=== PATIENT | male | born 1945 | race Caucasian/White ===

== ENCOUNTER → 2017-03-08 | Outpatient (CLI) | payer BC ==
[2017-03-08 14:29] LABS: MEAN CORPUSCULAR HEMOGLOBIN 35.1 pg (27.0-33.0); MEAN CORPUSCULAR HGB CONC 33.5 g/dl (32.0-36.5); MEAN CORPUSCULAR VOLUME 104.5 fl (80.0-96.0); RED CELL DISTRIBUTION WIDTH 12.7 % (11.5-14.5); WHITE BLOOD COUNT 8.3 K/mm3 (4.0-10.0)
[2017-03-08 14:43] LABS: ANION GAP 8 MEQ/L (8-16); BLOOD UREA NITROGEN 11 MG/DL (7-18); CALCIUM LEVEL 9.5 MG/DL (8.8-10.2); CARBON DIOXIDE LEVEL 27 MEQ/L (21-32); CHLORIDE LEVEL 103 MEQ/L (98-107); CREATININE FOR GFR 1.04 MG/DL (0.70-1.30); GLOMERULAR FILTRATION RATE > 60.0 (>49); GLUCOSE, FASTING 99 MG/DL (80-110); SODIUM LEVEL 138 MEQ/L (136-145)
[2017-03-08 14:51] LABS: POTASSIUM SERUM 5.9 MEQ/L (3.5-5.1)
== END ==
LOC: M SMT 10:22
PROVIDERS: ATTEND Surgery Vascular Surgery
DX: M79.605 Pain in left leg (principal)

== ENCOUNTER → 2017-03-08 | Outpatient (CLI) | payer BC ==
--- NOTE | 2017-03-08 10:51 | REP ---
DUPLEX DOPPLER EVALUATION LEFT LOWER EXTREMITY ARTERIAL SYSTEM: Real-time ultrasound evaluation and duplex Doppler interrogation of left lower extremity arterial system is performed. Brachial: 170 right and left. Dorsalis pedis: 90 Posterior tibial artery: No flow. STEVO: 0.5 PEAK SYSTOLIC VELOCITY PHASICITY Left common femoral artery 102.2 cm/s Triphasic Profunda 73.5 cm/s Triphasic Superficial femoral artery proximal 72.2 cm/s Triphasic Superficial femoral artery mid 92.0 cm/s Triphasic Superficial femoral artery distal 68.6 cm/s Triphasic Popliteal 42.2 cm/s Triphasic Anterior tibial artery proximal 77.3 cm/s Triphasic Tibioperoneal trunk 51.3 cm/s Biphasic Posterior tibial artery proximal No flow Posterior tibial artery distal No flow Anterior tibial artery distal 7.3 cm/s Biphasic Dorsalis pedis 6.6 cm/s Monophasic Findings are compatible with significant atherosclerotic narrowing in the calf. Signed by Evan Martinez MD 03/08/2017 01:12 P
== END ==
LOC: M RAD 07:25
PROVIDERS: ATTEND Surgery Vascular Surgery
DX: M79.605 Pain in left leg (principal)

== ENCOUNTER → 2017-03-19 | Outpatient (CLI) | payer BC ==
[~2017-03-19] MED LIST: HEPARIN 1,000 UNITS/ML 10ML VIAL (FOR RADIOLOGY& DIALYSIS ONLY) As Ordered ONE; ISOVUE-300 61% 50ML VIAL (Q9967) As Ordered ONE; MIDAZOLAM INJ 2 MG/2 ML VIAL (J2250) As Ordered ONE; fentaNYL 100 MCG/2 ML INJECTION (J3010) As Ordered ONE
--- NOTE | 2017-03-23 21:50 | ROOPDOC ---
[facility] Report Of Operation Report of Operation DATE OF PROCEDURE: 03/19/17 PREOPERATIVE DIAGNOSES: Left lower extremity claudication. Tibial peroneal atherosclerotic arterial occlusive disease. POSTOPERATIVE DIAGNOSES: Left lower extremity claudication. Tibial peroneal atherosclerotic arterial occlusive disease. PROCEDURE: Aortogram. Iliofemoral angiogram. Selective left common femoral artery catheter placed with left lower extremity angiogram. Mynx closure of the right common femoral arteriotomy. SURGEON: Dr. Justyn Brooke MD EQUIPMENT SPECIALIST: None INDICATION: Patient is a 71-year-old white male with bilateral lower extremity pain and claudication with the left being much more significant than the right. The patient underwent ultrasound of his left lower extremity which showed an STEVO of 0.5 and severe tibial peroneal arterial occlusive disease with occlusion of the posterior tibial artery. Patient was evaluated and options discussed with the patient and the recommendation was made to undergo a left lower extremity angiogram with possible angioplasty and/or stenting.. Risks benefits and alternative treatment options were discussed with the patient. Benefits include but are not limited to resolution of symptoms. Alternative treatment options included but are not limited to no intervention. Risks included but are not limited to infection, bleeding, renal failure requiring hemodialysis, retroperitoneal hematoma, possible need for open surgical intervention, cerebrovascular accident, myocardial infarction, pulmonary embolus, DVT, contrast dye reaction, loss of limb, loss of life and poor outcome. Patient's questions were answered, patient understands and accepts the risks associated with the procedure and the patient agrees to proceed with the procedure. ANESTHESIA: Local with 10 cc of 2% lidocaine. SEDATION TIME: No sedation administered. ESTIMATED BLOOD LOSS: Approximately 15 mL. IV FLUIDS: 150 HEPARIN: None PROTAMINE: None FLUORO TIME: 1.4 min. CONTRAST: 14 cc COMPLICATIONS: None. DRAINS: None SPECIMENS: None IMPLANTS: Right common femoral Mynx closure device PROCEDURE: The patient was taken to the angiography suite, placed supine on the angiography room table and prepped and draped in a standard surgical fashion. A time out was performed by myself and the members of the team in the procedure room confirming the correct procedure, patient and laterality. The right common femoral artery was then cannulated with a micropuncture needle after anesthetizing the overlying skin with 2% lidocaine. The micropuncture wire was advanced through the micropuncture needle which was upsized to a micropuncture sheath. The Gandhi wire was then advanced through the micropuncture sheath which was upsized to a 5 Japanese sheath. The Omni flush catheter was advanced over the Gandhi wire placed in the aorta and in aortogram was performed. The catheter was pulled down to the bifurcation of the iliac arteries in an iliofemoral angiogram was performed. The catheter was then directed over the bifurcation of the iliac arteries using the Gandhi wire and placed in the left common femoral artery selectively and a left lower extremity angiogram was performed. The arteriotomy in the right common femoral artery was closed using a Mynx closure device with an additional 10 min. of adjunct of pressure applied for hemostasis, which was noted. Dressings were then applied. There were no complications. Dr. Brooke was present for and directed the entire case. The patient was transferred to the holding area and subsequently discharged in stable condition. RADIOLOGIC SUPERVISION AND INTERPRETATION: Initial aortogram showed a suprarenal aortic patent but showed calcific plaquing along the lanza of the aorta. There were 2 renal arteries on the left and right both of which were patent. The superior mesenteric and celiac arteries were widely patent. There was an approximate 40% stenosis in the aorta between the upper and lower renal arteries. The infrarenal aorta was patent with good filling of lumbar vessels and there was calcific plaquing along the lanza of the aorta. The common iliac arteries external and internal iliac arteries were patent bilaterally. The right common femoral artery and proximal superficial femoral and profunda femoris arteries were widely patent and there was no visualization below the cannulation site. The left common femoral, superficial femoral and profunda femoris arteries were patent with some minor luminal irregularities along the superficial femoral artery. There were also some minor luminal irregularities at the origin of the profunda femoris artery on the left. The superficial femoral artery was patent and the popliteal artery and both the above and below knee popliteal artery were patent with donor only minor luminal irregularities. The below-knee runoff was via the peroneal artery which was patent into the ankle and supplied collaterals into the posterior tibial artery which was patent into the foot. The anterior tibial and posterior tibial arteries occluded in the mid calf and were severely diseased in the patent portions in the upper calf. A Mynx closure device was used to close the arteriotomy in the right common femoral artery. Jason Brooke MD Mar 23, 2017 21:50
== END | disposition home or self-care (01) ==
LOC: M IRPRO 08:49
PROVIDERS: ATTEND Surgery Vascular Surgery
DX: I70.212 Atherosclerosis of native arteries of extremities with intermittent claudication, left leg (principal)
CPT/HCPCS: 36246; 75625; 75716; 75774; C1760; C1769; C1887; C1894; G0269; J2250; J3010; Q9967

== ENCOUNTER → 2019-02-22 | Outpatient (REF) | payer BC | LOC: M SFHCADAM 14:25 | PROVIDERS: ATTEND Family Medicine | DX: R73.03 Prediabetes (principal); E78.2 Mixed hyperlipidemia; Z53.9 Procedure and treatment not carried out, unspecified reason ==

== ENCOUNTER → 2019-10-06 | Outpatient (REF) | payer BC ==
[2019-10-06 15:29] LABS: ALBUMIN 3.7 GM/DL (3.2-5.2); ALT/SGPT 25 U/L (12-78); BILIRUBIN,TOTAL 0.8 MG/DL (0.2-1.0); BLOOD UREA NITROGEN 10 MG/DL (7-18); CALCIUM LEVEL 8.3 MG/DL (8.8-10.2); CARBON DIOXIDE LEVEL 27 MEQ/L (21-32); CHLORIDE LEVEL 101 MEQ/L (98-107); CHOLESTEROL LEVEL 154 MG/DL (<200); CHOLESTEROL RISK RATIO 2.524 (<5); CREATININE FOR GFR 1.02 MG/DL (0.70-1.30); GLOMERULAR FILTRATION RATE > 60.0 (>42); GLUCOSE, FASTING 96 MG/DL (70-100); HDL CHOLESTEROL 61 MG/DL (>40); LDL CHOLESTEROL 52 MG/DL (<100); NON-HDL-C 93 MG/DL; POTASSIUM SERUM 4.7 MEQ/L (3.5-5.1); SODIUM LEVEL 134 MEQ/L (136-145); TRIGLYCERIDES LEVEL 207 MG/DL (<150)
[2019-10-06 15:33] LABS: HEMOGLOBIN A1c 5.6 %
== END ==
LOC: M SFHCADAM 11:32
PROVIDERS: ATTEND Family Medicine
DX: R73.03 Prediabetes (principal); E78.2 Mixed hyperlipidemia

== ENCOUNTER → 2021-01-06 | Outpatient (REF) | payer BC, MEDICARE ==
[2021-01-06 12:42] LABS: BASO % 0.5 % (0.0-1.0); EOS # 0.1 10^3/uL (0.0-0.5); EOS % 1.8 % (0.0-3.0); HEMATOCRIT 48.4 % (42.0-52.0); HEMOGLOBIN 15.6 g/dl (13.5-17.5); LYMPH # 1.1 10^3/uL (1.5-5.0); LYMPH % 13.5 % (24.0-44.0); MEAN CORPUSCULAR HEMOGLOBIN 32.2 pg (27.0-33.0); MEAN CORPUSCULAR HGB CONC 32.2 g/dl (32.0-36.5); MEAN CORPUSCULAR VOLUME 99.8 fl (80.0-96.0); MONO # 0.7 10^3/uL (0.0-0.8); MONO % 8.3 % (2.0-8.0); NEUTROPHILS % 75.5 % (36.0-66.0); PLATELET COUNT, AUTOMATED 237 10^3/uL (150-450); RED BLOOD COUNT 4.85 10^6/uL (4.30-6.10); WHITE BLOOD COUNT 7.9 10^3/uL (4.0-10.0)
[2021-01-06 13:12] LABS: ALBUMIN 3.7 GM/DL (3.2-5.2); ALT/SGPT 18 U/L (12-78); BILIRUBIN,TOTAL 0.7 MG/DL (0.2-1.0); BLOOD UREA NITROGEN 8 MG/DL (7-18); CALCIUM LEVEL 9.2 MG/DL (8.8-10.2); CARBON DIOXIDE LEVEL 29 MEQ/L (21-32); CHLORIDE LEVEL 104 MEQ/L (98-107); CHOLESTEROL LEVEL 136 MG/DL (<200); CHOLESTEROL RISK RATIO 2.193 (<5); CREATININE FOR GFR 1.07 MG/DL (0.70-1.30); GLOMERULAR FILTRATION RATE > 60.0 (>42); GLUCOSE, FASTING 124 MG/DL (70-100); HDL CHOLESTEROL 62 MG/DL (>40); LDL CHOLESTEROL 58 MG/DL (<100); NON-HDL-C 74 MG/DL; POTASSIUM SERUM 5.3 MEQ/L (3.5-5.1); SODIUM LEVEL 137 MEQ/L (136-145); TOTAL PROTEIN 6.7 GM/DL (6.4-8.2); TRIGLYCERIDES LEVEL 81 MG/DL (<150)
[2021-01-06 13:45] LABS: HEMOGLOBIN A1c 5.5 %
== END ==
LOC: M SFHCADAM 10:26
PROVIDERS: ATTEND Family Medicine
DX: E78.2 Mixed hyperlipidemia (principal); R73.03 Prediabetes; N64.4 Mastodynia; Z12.5 Encounter for screening for malignant neoplasm of prostate
CPT/HCPCS: 80053; 80061; 83036; 85025; G0103

== ENCOUNTER → 2021-01-08 | Outpatient (CLI) | payer MEDICARE ==
--- NOTE | 2021-01-08 14:09 | REP ---
INDICATION: N64.4 RT BREAST PAIN. The patient reports that the referring provider felt a lump. Patient complains of right breast pain. Retroareolar region. COMPARISON: None. TECHNIQUE: Targeted right breast sonography is performed in the area of patient's symptoms. Limited scanning for comparison purposes in the retroareolar region on the left. FINDINGS: Retroareolar scanning is performed in the right breast in the area of interest. There is a 1.0 x 0.7 x 0.9 cm area of hypoechoic tissue just beneath the nipple on the right side consistent with gynecomastia. No spiculation or acoustic shadowing is seen. No other finding. IMPRESSION: BI-RADS category 2 benign findings. Gynecomastia pattern retroareolar region on the right. Clinical follow-up is advised. If symptoms persist or progress, repeat imaging with mammography and sonography could be considered. <Electronically signed by Allen Harrison > 01/08/21 [id number]
== END ==
LOC: M WHC 12:44
PROVIDERS: ATTEND Family Medicine
DX: N62 Hypertrophy of breast (principal)

== ENCOUNTER 2021-12-18 02:11 | Inpatient (IN) | payer MEDICARE, BC ==
[~2021-12-18] VITALS: Ht 182.9 cm; Wt 70.0 kg
[~2021-12-18 02:11] MED LIST changes: +ALBU83IN INH; +AMLO1TAB24 PO; +CILO50TA PO; +CLOP75TA2 PO; -HEPARIN 1,000 UNITS/ML 10ML VIAL (FOR RADIOLOGY& DIALYSIS ONLY) As Ordered ONE; +IRBE150T7 PO; -ISOVUE-300 61% 50ML VIAL (Q9967) As Ordered ONE; +METO1TAB33 PO; -MIDAZOLAM INJ 2 MG/2 ML VIAL (J2250) As Ordered ONE; +PRAV20TA2 PO; +VITMTA PO; +XARE20TA PO; -fentaNYL 100 MCG/2 ML INJECTION (J3010) As Ordered ONE
[2021-12-18 02:39] LABS: BASO # 0.1 10^3/uL (0.0-0.2); BASO % 0.5 % (0.0-1.0); EOS # 1.2 10^3/uL (0.0-0.5); EOS % 9.9 % (0.0-3.0); HEMATOCRIT 50.6 % (42.0-52.0); HEMOGLOBIN 16.7 g/dl (13.5-17.5); LYMPH # 1.4 10^3/uL (1.5-5.0); LYMPH % 11.1 % (24.0-44.0); MEAN CORPUSCULAR HEMOGLOBIN 33.5 pg (27.0-33.0); MEAN CORPUSCULAR VOLUME 101.4 fl (80.0-96.0); MONO % 7.7 % (2.0-8.0); NEUTROPHILS # 8.8 10^3/uL (1.5-8.5); NEUTROPHILS % 70.6 % (36.0-66.0); PLATELET COUNT, AUTOMATED 257 10^3/uL (150-450); RED BLOOD COUNT 4.99 10^6/uL (4.30-6.10); WHITE BLOOD COUNT 12.5 10^3/uL (4.0-10.0)
[2021-12-18] MEDS: COMBIVENT RESPIMAT 100-20MCG INHALER 4GM INH SCH ×3 (03:07→03:56)
[2021-12-18 03:09] LABS: ABG BASE EXCESS -1.4 (-2.0-2.0); ABG HCO3 24.3 MEQ/L (22.0-26.0); ABG PARTIAL PRESSURE CO2 44.5 mmHg (35.0-45.0); ABG PARTIAL PRESSURE O2 102.2 mmHg (75.0-100.0); ABG STANDARD HCO3 23.3 MEQ/L (22.0-26.0); ABG TOTAL CO2 25.7 MEQ/L (23.0-31.0); ABG pH (ARTERIAL) 7.356 UNITS (7.350-7.450)
[2021-12-18 03:15] LABS: MB/CK RELATIVE INDEX 4.71 (< OR =4)
[2021-12-18 03:17] LABS: ALBUMIN 3.4 GM/DL (3.2-5.2); ALT/SGPT 22 U/L (12-78); BILIRUBIN,DIRECT 0.2 MG/DL (0.0-0.2); BILIRUBIN,TOTAL 0.9 MG/DL (0.2-1.0); BLOOD UREA NITROGEN 10 MG/DL (7-18); CALCIUM LEVEL 9.3 MG/DL (8.8-10.2); CARBON DIOXIDE LEVEL 24 MEQ/L (21-32); CHLORIDE LEVEL 108 MEQ/L (98-107); CREATININE FOR GFR 0.89 MG/DL (0.70-1.30); GLOMERULAR FILTRATION RATE > 60.0 (>42); GLUCOSE, FASTING 116 MG/DL (70-100); POTASSIUM SERUM 4.7 MEQ/L (3.5-5.1); SODIUM LEVEL 140 MEQ/L (136-145); TOTAL PROTEIN 6.8 GM/DL (6.4-8.2)
[2021-12-18 04:27] LABS: CK-MB VALUE MASS 4.4 NG/ML (<3.6); MB/CK RELATIVE INDEX 5.06 (< OR =4)
[2021-12-18 04:33] LABS: NT-PRO BNP 955 PG/ML (<125)
[2021-12-18] MEDS ORDERED: XARE20TA PO (06:14)
[2021-12-18] MEDS ORDERED: AMIO200T49 PO (06:14)
[2021-12-18] MEDS ORDERED: HOME MED LIST COMPLETE! XX SCH (06:15)
[2021-12-18] MEDS: methylPREDNISolone 125MG 2ML VIAL IV SCH ×3 (07:26→21:02)
[2021-12-18] MEDS ORDERED: LEVALBUTEROL 1.25 MG/0.5 ML CONCENTRATE NEB NEB PRN (07:35)
[2021-12-18] MEDS ORDERED: AMIODARONE 200 MG TAB (PACERONE) PO ONE (07:45)
[2021-12-18] MEDS: LEVALBUTEROL 1.25 MG/0.5 ML CONCENTRATE NEB NEB SCH ×4 (08:00→19:52)
[2021-12-18] MEDS: IPRATROPIUM 0.5MG/ALBUTEROL 2.5MG INH SOL UD 3ML (DUONEB) NEB SCH ×4 (08:06→19:52)
[2021-12-18] MEDS ORDERED: IRBESARTAN 150MG TAB PO SCH (09:00)
[2021-12-18] MEDS ORDERED: METOPROLOL SUCC (TopROL XL) 100MG *XL* TAB PO SCH (09:00)
[2021-12-18] MEDS ORDERED: AMIODARONE 200 MG TAB (PACERONE) PO SCH ×2 (09:00→21:00)
[2021-12-18 09:01] LABS: INR 1.59; PROTHROMBIN TIME 19.4 SECONDS (12.7-14.5)
[2021-12-18 09:02] LABS: PARTIAL THROMBOPLASTIN TIME 43.1 SECONDS (25.9-37.0)
[2021-12-18 10:05] VITALS: BP 124/70
[2021-12-18] MEDS: amLODIPine 5 MG TAB PO SCH (11:12)
[2021-12-18] MEDS: CLOPIDOGREL 75 MG TAB PO SCH (11:12)
[2021-12-18] MEDS: MULTIVITAMINS/MINERALS THERAP 1 TAB PO SCH (11:12)
[2021-12-18] MEDS: PRAVASTATIN 20 MG TAB PO SCH (11:12)
[2021-12-18 14:00] VITALS: BP 120/82
[2021-12-18 18:00] VITALS: BP 120/82
[2021-12-18 18:28] VITALS: BP 125/71
[2021-12-18] MEDS: RIVAROXABAN 20 MG TAB (XARELTO) PO SCH (18:30)
[2021-12-18] MEDS: METOPROLOL TART 50 MG TAB PO SCH (18:31)
[2021-12-18] MEDS: AMIODARONE 200 MG TAB (PACERONE) PO SCH (21:02)
[2021-12-18 22:00] VITALS: BP 123/74
[2021-12-19] MEDS: METOPROLOL TART 50 MG TAB PO SCH ×5 (00:17→23:48)
[2021-12-19] MEDS: IPRATROPIUM 0.5MG/ALBUTEROL 2.5MG INH SOL UD 3ML (DUONEB) NEB SCH ×7 (00:27→23:13)
[2021-12-19] MEDS: methylPREDNISolone 125MG 2ML VIAL IV SCH ×3 (05:33→21:06)
[2021-12-19 06:07] VITALS: BP 119/79
[2021-12-19 06:56] LABS: ALBUMIN 3.3 GM/DL (3.2-5.2); ALT/SGPT 21 U/L (12-78); BLOOD UREA NITROGEN 20 MG/DL (7-18); CALCIUM LEVEL 9.7 MG/DL (8.8-10.2); CARBON DIOXIDE LEVEL 28 MEQ/L (21-32); CHLORIDE LEVEL 102 MEQ/L (98-107); GLOMERULAR FILTRATION RATE > 60.0 (>42); GLUCOSE, FASTING 126 MG/DL (70-100); POTASSIUM SERUM 5.4 MEQ/L (3.5-5.1); SODIUM LEVEL 138 MEQ/L (136-145); TOTAL PROTEIN 6.7 GM/DL (6.4-8.2)
[2021-12-19] MEDS: AMIODARONE 200 MG TAB (PACERONE) PO SCH ×2 (09:06→21:05)
[2021-12-19] MEDS: PRAVASTATIN 20 MG TAB PO SCH (09:06)
[2021-12-19] MEDS: CLOPIDOGREL 75 MG TAB PO SCH (09:06)
[2021-12-19] MEDS: MULTIVITAMINS/MINERALS THERAP 1 TAB PO SCH (09:06)
[2021-12-19] MEDS: amLODIPine 5 MG TAB PO SCH (09:06)
[2021-12-19 09:39] LABS: HEMATOCRIT 50.6 % (42.0-52.0); HEMOGLOBIN 16.9 g/dl (13.5-17.5); MEAN CORPUSCULAR HEMOGLOBIN 33.5 pg (27.0-33.0); MEAN CORPUSCULAR HGB CONC 33.4 g/dl (32.0-36.5); MEAN CORPUSCULAR VOLUME 100.4 fl (80.0-96.0); PLATELET COUNT, AUTOMATED 288 10^3/uL (150-450); RED BLOOD COUNT 5.04 10^6/uL (4.30-6.10); WHITE BLOOD COUNT 17.5 10^3/uL (4.0-10.0)
[2021-12-19 12:32] VITALS: BP 120/81
[2021-12-19 14:00] VITALS: BP 120/82
[2021-12-19] MEDS: RIVAROXABAN 20 MG TAB (XARELTO) PO SCH (17:52)
[2021-12-19 18:00] VITALS: BP 121/84
[2021-12-20] MEDS: IPRATROPIUM 0.5MG/ALBUTEROL 2.5MG INH SOL UD 3ML (DUONEB) NEB SCH ×6 (03:06→23:07)
[2021-12-20] MEDS: methylPREDNISolone 125MG 2ML VIAL IV SCH ×2 (05:07→18:14)
[2021-12-20] MEDS: METOPROLOL TART 50 MG TAB PO SCH ×4 (05:08→23:45)
[2021-12-20 06:00] VITALS: BP 110/77
[2021-12-20 06:44] LABS: HEMATOCRIT 48.5 % (42.0-52.0); HEMOGLOBIN 16.2 g/dl (13.5-17.5); MEAN CORPUSCULAR HEMOGLOBIN 33.5 pg (27.0-33.0); MEAN CORPUSCULAR HGB CONC 33.4 g/dl (32.0-36.5); MEAN CORPUSCULAR VOLUME 100.4 fl (80.0-96.0); PLATELET COUNT, AUTOMATED 266 10^3/uL (150-450); RED BLOOD COUNT 4.83 10^6/uL (4.30-6.10); WHITE BLOOD COUNT 16.7 10^3/uL (4.0-10.0)
[2021-12-20 07:10] LABS: ALBUMIN 3.2 GM/DL (3.2-5.2); ALT/SGPT 24 U/L (12-78); BILIRUBIN,TOTAL 1.2 MG/DL (0.2-1.0); BLOOD UREA NITROGEN 31 MG/DL (7-18); CALCIUM LEVEL 9.3 MG/DL (8.8-10.2); CARBON DIOXIDE LEVEL 27 MEQ/L (21-32); CHLORIDE LEVEL 103 MEQ/L (98-107); CREATININE FOR GFR 1.01 MG/DL (0.70-1.30); GLOMERULAR FILTRATION RATE > 60.0 (>42); GLUCOSE, FASTING 125 MG/DL (70-100); POTASSIUM SERUM 4.9 MEQ/L (3.5-5.1); SODIUM LEVEL 138 MEQ/L (136-145); TOTAL PROTEIN 6.5 GM/DL (6.4-8.2)
[2021-12-20] MEDS: MULTIVITAMINS/MINERALS THERAP 1 TAB PO SCH (07:47)
[2021-12-20] MEDS: AMIODARONE 200 MG TAB (PACERONE) PO SCH ×2 (07:47→20:35)
[2021-12-20] MEDS: amLODIPine 5 MG TAB PO SCH (07:47)
[2021-12-20] MEDS: CLOPIDOGREL 75 MG TAB PO SCH (07:47)
[2021-12-20] MEDS: PRAVASTATIN 20 MG TAB PO SCH (07:47)
[2021-12-20 08:30] VITALS: BP 117/78
[2021-12-20 13:45] VITALS: BP 122/84
[2021-12-20] MEDS: RIVAROXABAN 20 MG TAB (XARELTO) PO SCH (18:14)
[2021-12-20 22:00] VITALS: BP 108/72
[2021-12-21] MEDS: IPRATROPIUM 0.5MG/ALBUTEROL 2.5MG INH SOL UD 3ML (DUONEB) NEB SCH ×5 (03:00→19:53)
[2021-12-21] MEDS: methylPREDNISolone 125MG 2ML VIAL IV SCH ×2 (05:46→09:12)
[2021-12-21] MEDS: METOPROLOL TART 50 MG TAB PO SCH ×4 (05:47→23:44)
[2021-12-21 06:00] VITALS: BP 125/87
[2021-12-21 06:44] LABS: HEMATOCRIT 49.7 % (42.0-52.0); HEMOGLOBIN 16.6 g/dl (13.5-17.5); MEAN CORPUSCULAR HEMOGLOBIN 34.1 pg (27.0-33.0); MEAN CORPUSCULAR HGB CONC 33.4 g/dl (32.0-36.5); MEAN CORPUSCULAR VOLUME 102.1 fl (80.0-96.0); PLATELET COUNT, AUTOMATED 266 10^3/uL (150-450); RED BLOOD COUNT 4.87 10^6/uL (4.30-6.10); WHITE BLOOD COUNT 14.1 10^3/uL (4.0-10.0)
[2021-12-21 07:13] LABS: ALT/SGPT 50 U/L (12-78); BILIRUBIN,TOTAL 1.3 MG/DL (0.2-1.0); BLOOD UREA NITROGEN 33 MG/DL (7-18); CALCIUM LEVEL 9.2 MG/DL (8.8-10.2); CARBON DIOXIDE LEVEL 30 MEQ/L (21-32); CHLORIDE LEVEL 100 MEQ/L (98-107); CREATININE FOR GFR 1.17 MG/DL (0.70-1.30); GLOMERULAR FILTRATION RATE > 60.0 (>42); GLUCOSE, FASTING 129 MG/DL (70-100); POTASSIUM SERUM 4.4 MEQ/L (3.5-5.1); SODIUM LEVEL 136 MEQ/L (136-145); TOTAL PROTEIN 6.6 GM/DL (6.4-8.2)
[2021-12-21] MEDS: PRAVASTATIN 20 MG TAB PO SCH (09:12)
[2021-12-21] MEDS: AMIODARONE 200 MG TAB (PACERONE) PO SCH ×2 (09:12→20:02)
[2021-12-21] MEDS: MULTIVITAMINS/MINERALS THERAP 1 TAB PO SCH (09:12)
[2021-12-21] MEDS: CLOPIDOGREL 75 MG TAB PO SCH (09:12)
[2021-12-21] MEDS: amLODIPine 5 MG TAB PO SCH (09:13)
[2021-12-21] MEDS: RIVAROXABAN 20 MG TAB (XARELTO) PO SCH (17:38)
[2021-12-21 20:39] VITALS: BP 114/75
[2021-12-22] MEDS: METOPROLOL TART 50 MG TAB PO SCH (05:13)
[2021-12-22 05:39] VITALS: BP 136/89
[2021-12-22 06:41] LABS: HEMOGLOBIN 16.9 g/dl (13.5-17.5); MEAN CORPUSCULAR HEMOGLOBIN 33.5 pg (27.0-33.0); MEAN CORPUSCULAR HGB CONC 33.1 g/dl (32.0-36.5); PLATELET COUNT, AUTOMATED 263 10^3/uL (150-450); RED BLOOD COUNT 5.05 10^6/uL (4.30-6.10); WHITE BLOOD COUNT 14.6 10^3/uL (4.0-10.0)
[2021-12-22 07:02] LABS: ALBUMIN 2.9 GM/DL (3.2-5.2); ALT/SGPT 101 U/L (12-78); BILIRUBIN,TOTAL 1.5 MG/DL (0.2-1.0); BLOOD UREA NITROGEN 35 MG/DL (7-18); CALCIUM LEVEL 9.3 MG/DL (8.8-10.2); CARBON DIOXIDE LEVEL 30 MEQ/L (21-32); CHLORIDE LEVEL 100 MEQ/L (98-107); CREATININE FOR GFR 1.25 MG/DL (0.70-1.30); GLOMERULAR FILTRATION RATE > 60.0 (>42); GLUCOSE, FASTING 104 MG/DL (70-100); POTASSIUM SERUM 4.7 MEQ/L (3.5-5.1); SODIUM LEVEL 136 MEQ/L (136-145)
[2021-12-22] MEDS: IPRATROPIUM 0.5MG/ALBUTEROL 2.5MG INH SOL UD 3ML (DUONEB) NEB SCH ×2 (07:44→11:46)
[2021-12-22] MEDS ORDERED: LOPR1TAB6 PO (08:24)
[2021-12-22] MEDS ORDERED: PRED20TA PO (09:14)
[2021-12-22] MEDS: methylPREDNISolone 125MG 2ML VIAL IV SCH (09:33)
[2021-12-22 09:34] VITALS: BP 131/89
[2021-12-22] MEDS: amLODIPine 5 MG TAB PO SCH (09:34)
[2021-12-22] MEDS: AMIODARONE 200 MG TAB (PACERONE) PO SCH (09:34)
[2021-12-22] MEDS: MULTIVITAMINS/MINERALS THERAP 1 TAB PO SCH (09:34)
[2021-12-22] MEDS: PRAVASTATIN 20 MG TAB PO SCH (09:34)
[2021-12-22] MEDS: CLOPIDOGREL 75 MG TAB PO SCH (09:34)
== END 2021-12-22 12:55 | disposition home or self-care (01) | DRG 190 ==
LOC: EDBD 02:11 → M ED 02:11 → M ED INP 05:34 → ENRESERV 08:05 → M MSPAV 10:06
PROVIDERS: ADMIT Family Medicine; ATTEND Internal Medicine
DX: J44.1 Chronic obstructive pulmonary disease with (acute) exacerbation (principal); J96.01 Acute respiratory failure with hypoxia; E78.00 Pure hypercholesterolemia, unspecified; I25.10 Atherosclerotic heart disease of native coronary artery without angina pectoris; I10 Essential (primary) hypertension; I35.8 Other nonrheumatic aortic valve disorders; I48.91 Unspecified atrial fibrillation; Z79.01 Long term (current) use of anticoagulants; R73.03 Prediabetes; Z79.899 Other long term (current) drug therapy; Z95.2 Presence of prosthetic heart valve; K57.30 Diverticulosis of large intestine without perforation or abscess without bleeding; K64.8 Other hemorrhoids; Z87.891 Personal history of nicotine dependence

== ENCOUNTER → 2022-01-14 | Outpatient (REF) | payer BC, MEDICARE ==
[~2022-01-14] MED LIST changes: +ALBU2.5V10 INH; -ALBU83IN INH; +AMIO200T49 PO; +LOPR1TAB6 PO; +PRED20TA PO
[2022-01-14 18:10] LABS: BLOOD UREA NITROGEN 11 MG/DL (7-18); CALCIUM LEVEL 8.4 MG/DL (8.8-10.2); CARBON DIOXIDE LEVEL 34 MEQ/L (21-32); CHLORIDE LEVEL 102 MEQ/L (98-107); CREATININE FOR GFR 1.01 MG/DL (0.70-1.30); GLOMERULAR FILTRATION RATE > 60.0 (>42); GLUCOSE, FASTING 109 MG/DL (70-100); POTASSIUM SERUM 4.4 MEQ/L (3.5-5.1); SODIUM LEVEL 137 MEQ/L (136-145)
== END ==
LOC: M SFHCADAM 15:11
PROVIDERS: ATTEND Family Medicine
DX: I11.9 Hypertensive heart disease without heart failure (principal)

== ENCOUNTER → 2022-03-08 | Outpatient (CLI) | payer MEDICARE ==
[~2022-03-08] MED LIST changes: +METO50TA7 PO
== END ==
LOC: M LABSMTC 10:00
PROVIDERS: ATTEND Anesthesiology
DX: Z01.812 Encounter for preprocedural laboratory examination (principal); Z20.822 Contact with and (suspected) exposure to COVID-19

== ENCOUNTER 2022-03-11 06:09 | Day surgery (SDC) | payer MEDICARE ==
[~2022-03-11] VITALS: Ht 180.3 cm; Wt 71.7 kg
[2022-03-11] MEDS ORDERED: LR 1,000 ML IV SCH ×2 (06:40→07:25)
[2022-03-11] MEDS ORDERED: ONDANSETRON 4MG 2ML VIAL IV PRN (07:25)
[2022-03-11] MEDS ORDERED: propofoL 200 MG/20 ML VIAL As Ordered ONE (07:46)
[2022-03-11 08:23] VITALS: BP 121/76
== END 2022-03-11 08:40 | disposition home or self-care (01) ==
LOC: M SDC 06:09
PROVIDERS: ATTEND Internal Medicine Cardiovascular Disease
DX: I48.91 Unspecified atrial fibrillation (principal); I10 Essential (primary) hypertension; I25.2 Old myocardial infarction; I25.10 Atherosclerotic heart disease of native coronary artery without angina pectoris; Z98.61 Coronary angioplasty status; J44.9 Chronic obstructive pulmonary disease, unspecified; Z87.891 Personal history of nicotine dependence; Z79.01 Long term (current) use of anticoagulants; Z79.02 Long term (current) use of antithrombotics/antiplatelets; Z79.899 Other long term (current) drug therapy; Z79.51 Long term (current) use of inhaled steroids; E78.5 Hyperlipidemia, unspecified

== ENCOUNTER → 2022-09-24 | Outpatient (REF) | payer BC, MEDICARE ==
[~2022-09-24] MED LIST changes: -CILO50TA PO; +CILO50TA2 PO
[2022-09-24 14:53] LABS: HEMATOCRIT 48.2 % (42.0-52.0); HEMOGLOBIN 15.7 g/dl (13.5-17.5); MEAN CORPUSCULAR HEMOGLOBIN 33.3 pg (27.0-33.0); MEAN CORPUSCULAR HGB CONC 32.6 g/dl (32.0-36.5); MEAN CORPUSCULAR VOLUME 102.3 fl (80.0-96.0); PLATELET COUNT, AUTOMATED 243 10^3/uL (150-450); RED BLOOD COUNT 4.71 10^6/uL (4.30-6.10); WHITE BLOOD COUNT 10.1 10^3/uL (4.0-10.0)
[2022-09-24 15:26] LABS: ALBUMIN 4.2 G/DL (3.2-5.2); CALCIUM LEVEL 9.6 MG/DL (8.3-10.6); CHOLESTEROL RISK RATIO 2.56 (<5); CREATININE FOR GFR 1.3 MG/DL (0.70-1.30); GLOMERULAR FILTRATION RATE 57.3 (>42); HDL CHOLESTEROL 70.9 MG/DL (>40); LDL CHOLESTEROL 51.9 MG/DL (<100); TOTAL PROTEIN 7.1 G/DL (5.7-8.2)
[2022-09-24 16:07] LABS: HEMOGLOBIN A1c 5.8 % (4.0-6.0)
== END ==
LOC: M SFHCADAM 13:52
PROVIDERS: ATTEND Family Medicine
DX: I38 Endocarditis, valve unspecified (principal); I11.9 Hypertensive heart disease without heart failure; R73.03 Prediabetes; I25.10 Atherosclerotic heart disease of native coronary artery without angina pectoris; Z12.5 Encounter for screening for malignant neoplasm of prostate
CPT/HCPCS: 80053; 80061; 83036; 85027; G0103

== ENCOUNTER → 2022-11-06 | Outpatient (CLI) | payer MEDICARE | LOC: M RAD 08:14 | PROVIDERS: ATTEND Family Medicine | DX: Z12.2 Encounter for screening for malignant neoplasm of respiratory organs (principal); F17.210 Nicotine dependence, cigarettes, uncomplicated ==

== ENCOUNTER 2023-08-17 09:24 | Inpatient (IN) | payer BC, MEDICARE ==
[~2023-08-17] VITALS: Ht 177.8 cm; Wt 65.9 kg
[2023-08-17 10:03] LABS: VENOUS PH 7.318 UNITS (7.330-7.430)
[2023-08-17 10:04] LABS: VENOUS BASE EXCESS 0.9 (-2.0-2.0); VENOUS HCO3 28.6 MMOL/L (23.0-27.0); VENOUS O2 SATURATION 38.3 % (60.0-80.0); VENOUS PARTIAL PRESSURE O2 24.2 mmHg (30.0-50.0); VENOUS STANDARD HCO3 23.6 MMOL/L; VENOUS TOTAL CO2 30.3 MMOL/L (24.0-28.0)
[2023-08-17 10:11] LABS: HEMATOCRIT 46.8 % (42.0-52.0); HEMOGLOBIN 15.3 g/dl (13.5-17.5); MEAN CORPUSCULAR HEMOGLOBIN 32.6 pg (27.0-33.0); MEAN CORPUSCULAR HGB CONC 32.7 g/dl (32.0-36.5); MEAN CORPUSCULAR VOLUME 99.6 fl (80.0-96.0); PLATELET COUNT, AUTOMATED 156 10^3/uL (150-450); WHITE BLOOD COUNT 4.7 10^3/uL (4.0-10.0)
[2023-08-17 10:38] LABS: ALBUMIN 3.4 G/DL (3.2-5.2); ALKALINE PHOSPHATASE 62 U/L (46-116); ALT/SGPT 25 U/L (7.0-40); AST/SGOT 58 U/L (<34); BILIRUBIN,DIRECT 0.3 MG/DL (<0.4); BILIRUBIN,TOTAL 0.8 MG/DL (0.3-1.2); BLOOD UREA NITROGEN 20 MG/DL (9-23); CALCIUM LEVEL 8.6 MG/DL (8.3-10.6); CARBON DIOXIDE LEVEL 29 MMOL/L (20-31); CHLORIDE LEVEL 100 MMOL/L (98-107); CK-MB VALUE MASS 6.6 NG/ML (<3.6); CREATININE FOR GFR 0.93 MG/DL (0.70-1.30); GLOMERULAR FILTRATION RATE > 60.0 (>42); GLUCOSE, FASTING 119 MG/DL (74-106); POTASSIUM SERUM 4.3 MMOL/L (3.5-5.1); SODIUM LEVEL 135 MMOL/L (136-145); TOTAL PROTEIN 6.6 G/DL (5.7-8.2)
[2023-08-17 10:40] LABS: THYROID STIMULATING HORMONE 0.694 uIU/ML (0.55-4.78)
[2023-08-17 10:42] LABS: CPK CREATINE PHOSPHOKINASE 647 U/L (46-171); MB/CK RELATIVE INDEX 1.02 (< OR =4)
[2023-08-17 11:03] LABS: ATYPICAL LYMPH 10 % (0-5); BASOPHILS 1 % (0-1); LYMPHOCYTES 7 % (16-44); MONOCYTES 21 % (0-5); NEUTROPHILS 61 % (28-66)
[2023-08-17 11:04] LABS: PLATELET ESTIMATE NORMAL (NORMAL)
[2023-08-17] MEDS ORDERED: methylPREDNISolone 125MG 2ML VIAL IV ONE (12:25)
[2023-08-17] MEDS ORDERED: cefTRIAXone SOD 1 GM in D5W MINI-BAG PLUS 50 ML IV ONE (12:25)
[2023-08-17] MEDS ORDERED: AZITHROMYCIN 250MG TABLET PO ONE (12:25)
[2023-08-17] MEDS: IPRATROPIUM 0.5MG/ALBUTEROL 2.5MG INH SOL UD 3ML (DUONEB) NEB PRN ×2 (12:45→13:05)
[2023-08-17 13:52] LABS: RSV AMPLIFICATION NEGATIVE (NEGATIVE)
[2023-08-17 14:02] LABS: ABG BASE EXCESS 0.9 (-2.0-2.0); ABG HCO3 25.3 MMOL/L (22.0-26.0); ABG O2 SATURATION 94.4 % (95.0-99.0); ABG PARTIAL PRESSURE CO2 39.6 mmHg (35.0-45.0); ABG PARTIAL PRESSURE O2 72.2 mmHg (75.0-100.0); ABG STANDARD HCO3 25.2 MMOL/L. (22.0-26.0); ABG TOTAL CO2 26.5 MMOL/L (23.0-31.0); ABG pH (ARTERIAL) 7.423 UNITS (7.350-7.450)
[2023-08-17] MEDS ORDERED: MED REC IN PROGRESS XX SCH (14:45)
[2023-08-17] MEDS ORDERED: OSELTAMIVIR PHOSPHATE 75 MG CAP (TAMIFLU) PO ONE (14:45)
[2023-08-17] MEDS ORDERED: ATOR40TA75 PO (15:51)
[2023-08-17] MEDS ORDERED: ALBU8.5H PO (15:51)
[2023-08-17 16:00] VITALS: BP 148/84; TEMP 98.8; O2SAT 92
[2023-08-17] MEDS: IPRATROPIUM 0.5MG/ALBUTEROL 2.5MG INH SOL UD 3ML (DUONEB) NEB SCH ×3 (16:00→23:47)
[2023-08-17] MEDS ORDERED: HOME MED LIST COMPLETE! XX SCH (16:15)
[2023-08-17] MEDS: methylPREDNISolone 40MG 1ML VIAL IV SCH (17:36)
[2023-08-17] MEDS: RIVAROXABAN 20MG TAB (XARELTO) PO SCH (17:36)
[2023-08-17] MEDS: SYMBICORT 160/4.5MCG INHALER 6GM INH SCH (19:47)
[2023-08-17] MEDS: OSELTAMIVIR PHOSPHATE 75 MG CAP (TAMIFLU) PO SCH (21:55)
[2023-08-17] MEDS: METOPROLOL TART 50 MG TAB PO SCH (21:56)
[2023-08-17 22:00] VITALS: BP 125/78; TEMP 97; O2SAT 97
[2023-08-18] MEDS: methylPREDNISolone 40MG 1ML VIAL IV SCH ×4 (00:16→17:54)
[2023-08-18] MEDS: IPRATROPIUM 0.5MG/ALBUTEROL 2.5MG INH SOL UD 3ML (DUONEB) NEB SCH ×5 (03:07→20:52)
[2023-08-18 05:58] LABS: HEMATOCRIT 43.3 % (42.0-52.0); HEMOGLOBIN 14.2 g/dl (13.5-17.5); MEAN CORPUSCULAR HEMOGLOBIN 32.5 pg (27.0-33.0); MEAN CORPUSCULAR HGB CONC 32.8 g/dl (32.0-36.5); MEAN CORPUSCULAR VOLUME 99.1 fl (80.0-96.0); PLATELET COUNT, AUTOMATED 165 10^3/uL (150-450); RED BLOOD COUNT 4.37 10^6/uL (4.30-6.10); WHITE BLOOD COUNT 4.5 10^3/uL (4.0-10.0)
[2023-08-18 06:10] VITALS: BP 141/76; TEMP 97.9; O2SAT 95
[2023-08-18 06:26] LABS: BLOOD UREA NITROGEN 31 MG/DL (9-23); CALCIUM LEVEL 8.6 MG/DL (8.3-10.6); CARBON DIOXIDE LEVEL 26 MMOL/L (20-31); CHLORIDE LEVEL 105 MMOL/L (98-107); CREATININE FOR GFR 0.92 MG/DL (0.70-1.30); GLOMERULAR FILTRATION RATE > 60.0 (>42); GLUCOSE, FASTING 151 MG/DL (74-106); POTASSIUM SERUM 4.5 MMOL/L (3.5-5.1); SODIUM LEVEL 138 MMOL/L (136-145)
[2023-08-18] MEDS: SYMBICORT 160/4.5MCG INHALER 6GM INH SCH ×2 (07:20→20:52)
[2023-08-18 07:25] LABS: ATYPICAL LYMPH 2 % (0-5); LYMPHOCYTES 13 % (16-44); MONOCYTES 3 % (0-5); NEUTROPHILS 82 % (28-66)
[2023-08-18 07:26] LABS: PLATELET ESTIMATE NORMAL (NORMAL)
[2023-08-18] MEDS: IRBESARTAN 150MG TAB PO SCH (09:45)
[2023-08-18] MEDS: CLOPIDOGREL 75 MG TAB PO SCH (09:45)
[2023-08-18] MEDS: OSELTAMIVIR PHOSPHATE 75 MG CAP (TAMIFLU) PO SCH ×2 (09:46→21:23)
[2023-08-18] MEDS: METOPROLOL TART 50 MG TAB PO SCH ×2 (09:46→21:24)
[2023-08-18] MEDS: ATORVASTATIN 20 MG TAB PO SCH (09:46)
[2023-08-18] MEDS: amLODIPine 5 MG TAB PO SCH (09:47)
[2023-08-18] MEDS: cefTRIAXone SOD 1 GM in D5W MINI-BAG PLUS 50 ML IV SCH (12:21)
[2023-08-18] MEDS: AZITHROMYCIN 250MG TABLET PO SCH (12:21)
[2023-08-18 14:00] VITALS: BP 145/78; TEMP 97.2; O2SAT 92
[2023-08-18] MEDS ORDERED: FLUZONE HIGH DOSE(65YR UP)QUAD/PF 240MCG/0.7ML SYRINGE IM.IMMUN ONE (17:00)
[2023-08-18] MEDS: RIVAROXABAN 20MG TAB (XARELTO) PO SCH (17:54)
[2023-08-18 19:59] VITALS: O2SAT 87
[2023-08-18 20:00] VITALS: BP 145/68; TEMP 98.6; O2SAT 90
[2023-08-18 20:55] VITALS: O2SAT 90
[2023-08-19] VITALS (12 sets, daily range): BP systolic 113–136; BP diastolic 65–75; TEMP 97.7–98.6; O2SAT 90–95
[2023-08-19] MEDS: IPRATROPIUM 0.5MG/ALBUTEROL 2.5MG INH SOL UD 3ML (DUONEB) NEB SCH ×7 (00:09→23:44)
[2023-08-19] MEDS: methylPREDNISolone 40MG 1ML VIAL IV SCH ×3 (00:36→18:37)
[2023-08-19 06:01] LABS: HEMATOCRIT 40.3 % (42.0-52.0); HEMOGLOBIN 13.6 g/dl (13.5-17.5); MEAN CORPUSCULAR HEMOGLOBIN 32.8 pg (27.0-33.0); MEAN CORPUSCULAR HGB CONC 33.7 g/dl (32.0-36.5); MEAN CORPUSCULAR VOLUME 97.1 fl (80.0-96.0); PLATELET COUNT, AUTOMATED 230 10^3/uL (150-450); RED BLOOD COUNT 4.15 10^6/uL (4.30-6.10)
[2023-08-19 06:21] LABS: BLOOD UREA NITROGEN 35 MG/DL (9-23); CALCIUM LEVEL 8.4 MG/DL (8.3-10.6); CARBON DIOXIDE LEVEL 26 MMOL/L (20-31); CHLORIDE LEVEL 107 MMOL/L (98-107); CREATININE FOR GFR 0.95 MG/DL (0.70-1.30); GLOMERULAR FILTRATION RATE > 60.0 (>42); GLUCOSE, FASTING 148 MG/DL (74-106); POTASSIUM SERUM 4.3 MMOL/L (3.5-5.1); SODIUM LEVEL 140 MMOL/L (136-145)
[2023-08-19 07:07] LABS: ATYPICAL LYMPH 3 % (0-5); LYMPHOCYTES 7 % (16-44); MONOCYTES 6 % (0-5); NEUTROPHILS 81 % (28-66); PLATELET ESTIMATE NORMAL (NORMAL)
[2023-08-19] MEDS ORDERED: FUROSEMIDE 40MG/4ML VIAL IV ONE (07:40)
[2023-08-19] MEDS: SYMBICORT 160/4.5MCG INHALER 6GM INH SCH ×2 (08:02→20:23)
[2023-08-19] MEDS: ATORVASTATIN 20 MG TAB PO SCH (08:44)
[2023-08-19] MEDS: OSELTAMIVIR PHOSPHATE 75 MG CAP (TAMIFLU) PO SCH ×2 (08:44→20:26)
[2023-08-19] MEDS: CLOPIDOGREL 75 MG TAB PO SCH (08:44)
[2023-08-19] MEDS: IRBESARTAN 150MG TAB PO SCH (08:45)
[2023-08-19] MEDS: METOPROLOL TART 50 MG TAB PO SCH ×2 (08:45→20:25)
[2023-08-19] MEDS: amLODIPine 5 MG TAB PO SCH (08:46)
[2023-08-19] MEDS: AZITHROMYCIN 250MG TABLET PO SCH (12:24)
[2023-08-19] MEDS: cefTRIAXone SOD 1 GM in D5W MINI-BAG PLUS 50 ML IV SCH (12:24)
[2023-08-19] MEDS: RIVAROXABAN 20MG TAB (XARELTO) PO SCH (18:37)
[2023-08-20 04:03] VITALS: O2SAT 94
[2023-08-20] MEDS: IPRATROPIUM 0.5MG/ALBUTEROL 2.5MG INH SOL UD 3ML (DUONEB) NEB SCH ×3 (04:07→11:23)
[2023-08-20] MEDS: methylPREDNISolone 40MG 1ML VIAL IV SCH (05:59)
[2023-08-20 06:00] VITALS: BP 107/70; TEMP 97.7; O2SAT 92
[2023-08-20 06:00] LABS: BASO % 0.2 % (0.0-1.0); HEMATOCRIT 42.5 % (42.0-52.0); HEMOGLOBIN 14.1 g/dl (13.5-17.5); LYMPH # 0.8 10^3/uL (1.5-5.0); LYMPH % 7.2 % (24.0-44.0); MEAN CORPUSCULAR HEMOGLOBIN 32.2 pg (27.0-33.0); MEAN CORPUSCULAR HGB CONC 33.2 g/dl (32.0-36.5); MONO # 0.8 10^3/uL (0.0-0.8); MONO % 7.5 % (2.0-8.0); NEUTROPHILS # 8.9 10^3/uL (1.5-8.5); NEUTROPHILS % 84.5 % (36.0-66.0); PLATELET COUNT, AUTOMATED 277 10^3/uL (150-450); RED BLOOD COUNT 4.38 10^6/uL (4.30-6.10); WHITE BLOOD COUNT 10.5 10^3/uL (4.0-10.0)
[2023-08-20 06:20] LABS: BLOOD UREA NITROGEN 42 MG/DL (9-23); CALCIUM LEVEL 8.5 MG/DL (8.3-10.6); CARBON DIOXIDE LEVEL 26 MMOL/L (20-31); CHLORIDE LEVEL 107 MMOL/L (98-107); CREATININE FOR GFR 1.07 MG/DL (0.70-1.30); GLOMERULAR FILTRATION RATE > 60.0 (>42); GLUCOSE, FASTING 146 MG/DL (74-106); POTASSIUM SERUM 4.1 MMOL/L (3.5-5.1); SODIUM LEVEL 142 MMOL/L (136-145)
[2023-08-20] MEDS: SYMBICORT 160/4.5MCG INHALER 6GM INH SCH (07:26)
[2023-08-20] MEDS: ATORVASTATIN 20 MG TAB PO SCH (08:53)
[2023-08-20] MEDS: CLOPIDOGREL 75 MG TAB PO SCH (08:53)
[2023-08-20] MEDS: OSELTAMIVIR PHOSPHATE 75 MG CAP (TAMIFLU) PO SCH (08:53)
[2023-08-20] MEDS: amLODIPine 5 MG TAB PO SCH (09:00)
[2023-08-20] MEDS ORDERED: IRBE150T7 PO (11:08)
[2023-08-20] MEDS ORDERED: CEFD1CAP9 PO (11:08)
[2023-08-20] MEDS ORDERED: ALBU2.5V10 INH (11:08)
[2023-08-20] MEDS ORDERED: OSEL75CA2 PO (11:08)
[2023-08-20] MEDS ORDERED: PRED10TA2 PO (11:08)
[2023-08-20] MEDS ORDERED: SYMB16INH INH (11:08)
[2023-08-20] MEDS ORDERED: ANOR1AER PO (12:14)
[2023-08-20] MEDS ORDERED: FLUT1BLS8 IH (12:14)
[2023-08-20] MEDS ORDERED: ADV250INH INH (12:14)
[2023-08-20] MEDS ORDERED: FLUT1BLS2 IH (12:14)
[2023-08-20 12:31] VITALS: BP 115/62
[2023-08-20] MEDS: METOPROLOL TART 50 MG TAB PO SCH (12:31)
[2023-08-20] MEDS: AZITHROMYCIN 250MG TABLET PO SCH (12:31)
[2023-08-20] MEDS: cefTRIAXone SOD 1 GM in D5W MINI-BAG PLUS 50 ML IV SCH (12:32)
[2023-08-20 14:00] VITALS: BP 107/64; TEMP 98.8; O2SAT 93
[2023-08-22] MEDS ORDERED: IRBE150T7 PO (15:53)
== END 2023-08-20 15:24 | disposition home or self-care (01) | DRG 190 ==
LOC: M ED 09:24 → EDBD 09:24 → M ED INP 14:41 → ENRESERV 15:30 → M MSPAV 15:52
PROVIDERS: ADMIT Internal Medicine Nephrology; ATTEND Internal Medicine Nephrology
DX: J44.0 Chronic obstructive pulmonary disease with (acute) lower respiratory infection (principal); J15.9 Unspecified bacterial pneumonia; J10.00 Influenza due to other identified influenza virus with unspecified type of pneumonia; I48.20 Chronic atrial fibrillation, unspecified; I50.22 Chronic systolic (congestive) heart failure; J96.11 Chronic respiratory failure with hypoxia; I11.0 Hypertensive heart disease with heart failure; I73.9 Peripheral vascular disease, unspecified; I48.0 Paroxysmal atrial fibrillation; I25.10 Atherosclerotic heart disease of native coronary artery without angina pectoris; E78.00 Pure hypercholesterolemia, unspecified; K57.90 Diverticulosis of intestine, part unspecified, without perforation or abscess without bleeding; R91.1 Solitary pulmonary nodule; N52.9 Male erectile dysfunction, unspecified; K64.8 Other hemorrhoids; K80.20 Calculus of gallbladder without cholecystitis without obstruction; Z79.899 Other long term (current) drug therapy; Z95.2 Presence of prosthetic heart valve; F17.200 Nicotine dependence, unspecified, uncomplicated

== ENCOUNTER 2023-08-22 10:54 | Observation (INO) | payer MEDICARE ==
[~2023-08-22] VITALS: Ht 180.3 cm; Wt 64.8 kg
[~2023-08-22 10:54] MED LIST changes: +ADV250INH INH; +ALBU8.5H PO; +ANOR1AER PO; +ATOR40TA75 PO; +CEFD1CAP9 PO; +FLUT1BLS2 IH; +FLUT1BLS8 IH; +IRBE150T27 PO; -IRBE150T7 PO; +OSEL75CA2 PO; +PRED10TA2 PO; +SYMB16INH INH
[2023-08-22] MEDS: DIGOXIN INJ 0.5 MG/2 ML AMP IV ONE ×4 (11:24→18:12)
[2023-08-22 11:35] LABS: ABG BASE EXCESS 0.7 (-2.0-2.0); ABG HCO3 22.8 MMOL/L (22.0-26.0); ABG O2 SATURATION 94.9 % (95.0-99.0); ABG PARTIAL PRESSURE CO2 30.3 mmHg (35.0-45.0); ABG PARTIAL PRESSURE O2 71.2 mmHg (75.0-100.0); ABG TOTAL CO2 23.7 MMOL/L (23.0-31.0); ABG pH (ARTERIAL) 7.494 UNITS (7.350-7.450)
[2023-08-22 11:49] LABS: BASO % 0.1 % (0.0-1.0); HEMATOCRIT 48.1 % (42.0-52.0); LYMPH # 0.4 10^3/uL (1.5-5.0); MEAN CORPUSCULAR HEMOGLOBIN 32.3 pg (27.0-33.0); MEAN CORPUSCULAR HGB CONC 33.3 g/dl (32.0-36.5); MONO # 0.6 10^3/uL (0.0-0.8); MONO % 5.2 % (2.0-8.0); NEUTROPHILS # 9.6 10^3/uL (1.5-8.5); NEUTROPHILS % 89.9 % (36.0-66.0); PLATELET COUNT, AUTOMATED 368 10^3/uL (150-450); RED BLOOD COUNT 4.96 10^6/uL (4.30-6.10); WHITE BLOOD COUNT 10.6 10^3/uL (4.0-10.0)
[2023-08-22 12:26] LABS: BLOOD UREA NITROGEN 33 MG/DL (9-23); CALCIUM LEVEL 8.7 MG/DL (8.3-10.6); CARBON DIOXIDE LEVEL 26 MMOL/L (20-31); CHLORIDE LEVEL 108 MMOL/L (98-107); CREATININE FOR GFR 1.03 MG/DL (0.70-1.30); GLOMERULAR FILTRATION RATE > 60.0 (>42); GLUCOSE, FASTING 151 MG/DL (74-106); POTASSIUM SERUM 5.1 MMOL/L (3.5-5.1); SODIUM LEVEL 140 MMOL/L (136-145)
[2023-08-22] MEDS: METOPROLOL 5 MG/5 ML VIAL IV STA (13:39)
[2023-08-22] MEDS ORDERED: MED REC IN PROGRESS XX SCH (15:35)
[2023-08-22] MEDS ORDERED: OSEL75CA2 PO (15:53)
[2023-08-22] MEDS ORDERED: ALBU2.5V10 INH (15:53)
[2023-08-22] MEDS ORDERED: PRED10PA PO (15:53)
[2023-08-22] MEDS ORDERED: CEFD1CAP9 PO (15:53)
[2023-08-22] MEDS ORDERED: HOME MED LIST COMPLETE! XX SCH (16:00)
[2023-08-22] MEDS: AZITHROMYCIN 250MG TABLET PO SCH (16:39)
[2023-08-22 16:52] LABS: MAGNESIUM LEVEL 2.2 MG/DL (1.8-2.4)
[2023-08-22 17:06] LABS: PROCALCITONIN 0.08 ng/ml
[2023-08-22 17:46] VITALS: BP 134/76; TEMP 97.2; O2SAT 92
[2023-08-22] MEDS: RIVAROXABAN 20MG TAB (XARELTO) PO SCH (18:12)
[2023-08-22 19:07] VITALS: BP 132/68; TEMP 98.2; O2SAT 94
[2023-08-22] MEDS: OSELTAMIVIR PHOSPHATE 75 MG CAP (TAMIFLU) PO SCH (20:39)
[2023-08-22] MEDS: CEFDINIR 300 MG CAP (OMNICEF) PO SCH (20:39)
[2023-08-22] MEDS: METOPROLOL TART 50 MG TAB PO SCH (20:40)
[2023-08-22 23:15] VITALS: BP 103/65; TEMP 98; O2SAT 94
[2023-08-23 04:00] VITALS: BP 110/81; TEMP 98.1; O2SAT 97
[2023-08-23 05:56] LABS: HEMATOCRIT 46.9 % (42.0-52.0); HEMOGLOBIN 15.5 g/dl (13.5-17.5); MEAN CORPUSCULAR HEMOGLOBIN 32.4 pg (27.0-33.0); MEAN CORPUSCULAR VOLUME 98.1 fl (80.0-96.0); PLATELET COUNT, AUTOMATED 383 10^3/uL (150-450); RED BLOOD COUNT 4.78 10^6/uL (4.30-6.10); WHITE BLOOD COUNT 17.4 10^3/uL (4.0-10.0)
[2023-08-23 06:15] LABS: BLOOD UREA NITROGEN 40 MG/DL (9-23); CALCIUM LEVEL 8.5 MG/DL (8.3-10.6); CARBON DIOXIDE LEVEL 27 MMOL/L (20-31); CHLORIDE LEVEL 108 MMOL/L (98-107); CREATININE FOR GFR 1.05 MG/DL (0.70-1.30); GLOMERULAR FILTRATION RATE > 60.0 (>42); GLUCOSE, FASTING 101 MG/DL (74-106); MAGNESIUM LEVEL 2.3 MG/DL (1.8-2.4); POTASSIUM SERUM 4.9 MMOL/L (3.5-5.1); SODIUM LEVEL 140 MMOL/L (136-145)
[2023-08-23 07:57] VITALS: BP 117/84; TEMP 97.3; O2SAT 98
[2023-08-23] MEDS: predniSONE 20 MG TAB PO SCH (08:27)
[2023-08-23] MEDS: TIOTROPIUM INHALER/CAPSULE (SPIRIVA) INH SCH (10:47)
[2023-08-23] MEDS: SYMBICORT 80/4.5MCG INHALER 6GM INH SCH (10:48)
[2023-08-23 11:29] VITALS: BP 98/62; TEMP 96.5; O2SAT 98
[2023-08-23] MEDS ORDERED: ALBUTEROL SULFATE 2.5MG/0.5ML INH NEB SOLN NEB PRN (15:30)
[2023-08-23 16:00] VITALS: BP 102/60; TEMP 97.2; O2SAT 97
[2023-08-23 20:07] VITALS: BP 98/60; TEMP 97.6; O2SAT 96
[2023-08-23 23:08] VITALS: BP 102/58; TEMP 97.8; O2SAT 100
[2023-08-24 03:23] VITALS: BP 111/69; TEMP 97; O2SAT 97
[2023-08-24 06:21] LABS: BASO % 0.3 % (0.0-1.0); EOS % 0.2 % (0.0-3.0); HEMATOCRIT 46.9 % (42.0-52.0); HEMOGLOBIN 15.6 g/dl (13.5-17.5); LYMPH # 1.6 10^3/uL (1.5-5.0); LYMPH % 10.8 % (24.0-44.0); MEAN CORPUSCULAR HEMOGLOBIN 32.7 pg (27.0-33.0); MEAN CORPUSCULAR HGB CONC 33.3 g/dl (32.0-36.5); MEAN CORPUSCULAR VOLUME 98.3 fl (80.0-96.0); MONO # 1.7 10^3/uL (0.0-0.8); MONO % 11.6 % (2.0-8.0); NEUTROPHILS % 75.6 % (36.0-66.0); PLATELET COUNT, AUTOMATED 362 10^3/uL (150-450); RED BLOOD COUNT 4.77 10^6/uL (4.30-6.10); WHITE BLOOD COUNT 14.6 10^3/uL (4.0-10.0)
[2023-08-24 06:47] LABS: CALCIUM LEVEL 8.4 MG/DL (8.3-10.6); CREATININE FOR GFR 1.26 MG/DL (0.70-1.30); GLOMERULAR FILTRATION RATE 59.2 (>42); MAGNESIUM LEVEL 2.1 MG/DL (1.8-2.4)
[2023-08-24] MEDS: DIGOXIN 0.125 MG TAB PO STA (06:54)
[2023-08-24 07:36] VITALS: BP 125/74; TEMP 97.6; O2SAT 97
[2023-08-24] MEDS ORDERED: SYMB80INH INH (11:09)
[2023-08-24] MEDS ORDERED: CEFD300CAP PO (11:09)
[2023-08-24] MEDS ORDERED: TIOT18INH INH (11:09)
[2023-08-24] MEDS ORDERED: OSEL75CA2 PO (11:09)
[2023-08-24] MEDS ORDERED: AZIT-12 PO (11:09)
[2023-08-24] MEDS ORDERED: DIGO0.123 PO (11:12)
[2023-08-24 12:14] VITALS: BP 93/61; TEMP 97; O2SAT 94
[2023-08-24 15:27] VITALS: BP 102/71; TEMP 97.8; O2SAT 97
[2023-08-24 20:09] VITALS: BP 102/69; TEMP 96.9; O2SAT 96
[2023-08-25 00:16] VITALS: BP 110/57; TEMP 96.8; O2SAT 97
[2023-08-25 04:19] VITALS: BP 107/70; TEMP 98.2; O2SAT 97
[2023-08-25 07:27] LABS: BASO % 0.2 % (0.0-1.0); EOS # 0.1 10^3/uL (0.0-0.5); EOS % 0.3 % (0.0-3.0); HEMATOCRIT 48.2 % (42.0-52.0); HEMOGLOBIN 15.6 g/dl (13.5-17.5); LYMPH # 1.9 10^3/uL (1.5-5.0); LYMPH % 12.7 % (24.0-44.0); MEAN CORPUSCULAR HEMOGLOBIN 32.6 pg (27.0-33.0); MEAN CORPUSCULAR HGB CONC 32.4 g/dl (32.0-36.5); MEAN CORPUSCULAR VOLUME 100.8 fl (80.0-96.0); MONO # 1.7 10^3/uL (0.0-0.8); MONO % 11.5 % (2.0-8.0); NEUTROPHILS # 10.8 10^3/uL (1.5-8.5); NEUTROPHILS % 73.8 % (36.0-66.0); PLATELET COUNT, AUTOMATED 340 10^3/uL (150-450); RED BLOOD COUNT 4.78 10^6/uL (4.30-6.10); WHITE BLOOD COUNT 14.7 10^3/uL (4.0-10.0)
[2023-08-25 07:59] LABS: CALCIUM LEVEL 8.2 MG/DL (8.3-10.6); CREATININE FOR GFR 1.3 MG/DL (0.70-1.30); GLOMERULAR FILTRATION RATE 57.1 (>42); MAGNESIUM LEVEL 2.1 MG/DL (1.8-2.4); POTASSIUM SERUM 4.9 MMOL/L (3.5-5.1)
[2023-08-25 08:00] VITALS: BP 108/72; TEMP 97.2; O2SAT 98
[2023-08-25 08:36] VITALS: BP 108/72
[2023-08-25] MEDS ORDERED: PRED20TA PO (09:38)
[2023-08-25] MEDS ORDERED: ANOR1AER PO (11:12)
[2023-08-25] MEDS ORDERED: SYMB80INH INH (11:33)
== END 2023-08-25 12:10 | disposition home or self-care (01) ==
LOC: M ED 10:54 → EDBD 10:54 → M ED INP 10:55 → ENRESERV 16:57 → M PCU 17:26
PROVIDERS: ADMIT Internal Medicine; ATTEND Internal Medicine
DX: I48.0 Paroxysmal atrial fibrillation (principal); I50.20 Unspecified systolic (congestive) heart failure; I11.9 Hypertensive heart disease without heart failure; Z86.19 Personal history of other infectious and parasitic diseases; J96.10 Chronic respiratory failure, unspecified whether with hypoxia or hypercapnia; I25.10 Atherosclerotic heart disease of native coronary artery without angina pectoris; I28.8 Other diseases of pulmonary vessels; Z99.81 Dependence on supplemental oxygen; E78.5 Hyperlipidemia, unspecified; R91.8 Other nonspecific abnormal finding of lung field; Z79.899 Other long term (current) drug therapy; Z79.51 Long term (current) use of inhaled steroids; Z79.01 Long term (current) use of anticoagulants
CPT/HCPCS: 36415; 36600; 71045; 71250; 80048; 80162; 82803; 83735; 83880; 84145; 84484; 85025; 85027; 87635; 93005; 93041; 93306; 94640; 94760; 96374; 96375; 96376; 99285; G0378; J1160; J7512

== ENCOUNTER → 2023-09-16 | Outpatient (CLI) | payer MEDICARE ==
[~2023-09-16] MED LIST changes: +AZIT-12 PO; +CEFD300CAP PO; +DIGO0.123 PO; +PRED10PA PO; +SYMB80INH INH; +TIOT18INH INH
== END ==
LOC: M ADAMS 15:08
PROVIDERS: ATTEND Family Medicine
DX: J18.9 Pneumonia, unspecified organism (principal)

== ENCOUNTER → 2024-01-12 | Outpatient (REF) | payer MEDICARE ==
[2024-01-12 14:31] LABS: HEMATOCRIT 53.4 % (42.0-52.0); HEMOGLOBIN 17.4 g/dl (13.5-17.5); MEAN CORPUSCULAR HEMOGLOBIN 32.7 pg (27.0-33.0); MEAN CORPUSCULAR HGB CONC 32.6 g/dl (32.0-36.5); MEAN CORPUSCULAR VOLUME 100.4 fl (80.0-96.0); PLATELET COUNT, AUTOMATED 239 10^3/uL (150-450); RED BLOOD COUNT 5.32 10^6/uL (4.30-6.10); WHITE BLOOD COUNT 9.6 10^3/uL (4.0-10.0)
[2024-01-12 15:09] LABS: ALBUMIN 3.8 G/DL (3.2-5.2); BILIRUBIN,TOTAL 0.7 MG/DL (0.3-1.2); CALCIUM LEVEL 9.8 MG/DL (8.3-10.6); CHOLESTEROL RISK RATIO 2.1 (<5); CREATININE FOR GFR 1.26 MG/DL (0.70-1.30); GLOMERULAR FILTRATION RATE 59.2 (>42); HDL CHOLESTEROL 58.4 MG/DL (>40); LDL CHOLESTEROL 31.4 MG/DL (<100); NON-HDL-C 64.6 MG/DL; POTASSIUM SERUM 5.6 MMOL/L (3.5-5.1); PSA SCREENING 3.85 NG/ML (< 4.00); TOTAL PROTEIN 6.7 G/DL (5.7-8.2)
[2024-01-12 15:13] LABS: FREE T4 1.29 NG/DL (0.89-1.76); THYROID STIMULATING HORMONE 2.125 uIU/ML (0.55-4.78)
[2024-01-12 15:25] LABS: HEMOGLOBIN A1c 5.7 % (4.0-6.0)
== END ==
LOC: M SFHCADAM 10:28
PROVIDERS: ATTEND Family Medicine
DX: I38 Endocarditis, valve unspecified (principal); I25.10 Atherosclerotic heart disease of native coronary artery without angina pectoris; I48.0 Paroxysmal atrial fibrillation; E78.2 Mixed hyperlipidemia; R73.03 Prediabetes; Z12.5 Encounter for screening for malignant neoplasm of prostate
CPT/HCPCS: 80053; 80061; 83036; 84439; 84443; 85027; G0103

== ENCOUNTER 2024-09-18 09:14 | Emergency (ER) | payer MEDICARE ==
[~2024-09-18] VITALS: Ht 180.3 cm; Wt 72.7 kg
[~2024-09-18 09:14] MED LIST changes: -ADV250INH INH; +ADVA1AER9 INH
[2024-09-18 09:38] VITALS: TEMP 97.3
[2024-09-18] MEDS ORDERED: METO1TAB87 PO (10:19)
[2024-09-18 10:24] LABS: BASO # 0.1 10^3/uL (0.0-0.2); BASO % 0.3 % (0.0-1.0); EOS % 0.2 % (0.0-3.0); HEMATOCRIT 44.3 % (42.0-52.0); HEMOGLOBIN 14.9 g/dl (13.5-17.5); LYMPH # 0.5 10^3/uL (1.5-5.0); LYMPH % 2.8 % (24.0-44.0); MEAN CORPUSCULAR HEMOGLOBIN 33.3 pg (27.0-33.0); MEAN CORPUSCULAR HGB CONC 33.6 g/dl (32.0-36.5); MEAN CORPUSCULAR VOLUME 98.9 fl (80.0-96.0); MONO # 1.1 10^3/uL (0.0-0.8); MONO % 6.2 % (2.0-8.0); NEUTROPHILS # 16.3 10^3/uL (1.5-8.5); NEUTROPHILS % 89.9 % (36.0-66.0); PLATELET COUNT, AUTOMATED 258 10^3/uL (150-450); RED BLOOD COUNT 4.48 10^6/uL (4.30-6.10); WHITE BLOOD COUNT 18.1 10^3/uL (4.0-10.0)
[2024-09-18 10:38] LABS: INR 1.59; PARTIAL THROMBOPLASTIN TIME 38.2 SECONDS (24.8-34.2); PROTHROMBIN TIME 19.1 SECONDS (12.5-14.5)
[2024-09-18 10:47] LABS: BLOOD UREA NITROGEN 30 MG/DL (9-23); CARBON DIOXIDE LEVEL 25 MMOL/L (20-31); CHLORIDE LEVEL 103 MMOL/L (98-107); CREATININE FOR GFR 1.17 MG/DL (0.70-1.30); GLOMERULAR FILTRATION RATE > 60.0 (>42); GLUCOSE, FASTING 96 MG/DL (74-106); POTASSIUM SERUM 5.6 MMOL/L (3.5-5.1); SODIUM LEVEL 137 MMOL/L (136-145)
[2024-09-18] MEDS ORDERED: ISOVUE-370 76% 100ML VIAL As Ordered ONE (12:02)
[2024-09-18] MEDS ORDERED: AMLO1TAB24 PO (14:55)
[2024-09-18] MEDS ORDERED: HOME MED LIST COMPLETE! XX SCH (15:00)
[2024-09-18] MEDS: DIGOXIN INJ 0.5 MG/2 ML AMP IV ONE (15:28)
[2024-09-18 18:05] VITALS: BP 101/57
[2024-09-18 18:15] VITALS: O2SAT 100
== END 2024-09-18 18:39 | disposition short-term general hospital (02) ==
LOC: M ED 09:14 → EDBD 09:14 → M ED 18:39
DX: I70.213 Atherosclerosis of native arteries of extremities with intermittent claudication, bilateral legs (principal); I48.91 Unspecified atrial fibrillation; I70.0 Atherosclerosis of aorta; I70.92 Chronic total occlusion of artery of the extremities; I74.3 Embolism and thrombosis of arteries of the lower extremities; J44.9 Chronic obstructive pulmonary disease, unspecified; G43.909 Migraine, unspecified, not intractable, without status migrainosus; I10 Essential (primary) hypertension; E78.5 Hyperlipidemia, unspecified; F17.200 Nicotine dependence, unspecified, uncomplicated; Z79.52 Long term (current) use of systemic steroids; Z79.02 Long term (current) use of antithrombotics/antiplatelets; Z79.899 Other long term (current) drug therapy; Z86.79 Personal history of other diseases of the circulatory system
CPT/HCPCS: 71045; 75635; 80048; 85025; 85610; 85730; 93005; 96374; 99285; J1160; Q9967

== ENCOUNTER → 2025-03-20 | Outpatient (REF) | payer MEDICARE ==
[~2025-03-20] MED LIST changes: -AMIO200T49 PO; +AMIO200T54 PO; +METO1TAB87 PO; -PRAV20TA2 PO; +PRAV20TA78 PO
[2025-03-20 17:08] LABS: ALT/SGPT 13.0 U/L (7.0-40); AST/SGOT 25.0 U/L (<34); CALCIUM LEVEL 9.1 MG/DL (8.3-10.6); CARBON DIOXIDE LEVEL 30.0 MMOL/L (20-31); CHLORIDE LEVEL 104.0 MMOL/L (98-107); CREATININE FOR GFR 1.18 MG/DL (0.70-1.30); GLOMERULAR FILTRATION RATE 63.6 (>42); POTASSIUM SERUM 5.3 MMOL/L (3.5-5.1); SODIUM LEVEL 143.0 MMOL/L (136-145)
[2025-03-20 17:17] LABS: ESTIMATED AVERAGE GLUCOSE 117.0 MG/DL (60-110)
== END ==
LOC: M SFHCADAM 12:45
PROVIDERS: ATTEND Family Medicine
DX: R73.03 Prediabetes (principal); I11.9 Hypertensive heart disease without heart failure

== ENCOUNTER → 2025-04-13 | Outpatient (REF) | payer MEDICARE ==
[2025-04-13 13:28] LABS: PLATELET COUNT, AUTOMATED 237 10^3/uL (150-450)
[2025-04-13 13:59] LABS: PSA SCREENING 1.83 NG/ML (< 4.00)
[2025-04-13 14:01] LABS: CHOLESTEROL LEVEL 136.0 MG/DL (<200); CHOLESTEROL RISK RATIO 1.82 (<5); LDL CHOLESTEROL 42.2 MG/DL (<100); NON-HDL-C 61.6 MG/DL; TRIGLYCERIDES LEVEL 97.0 MG/DL (<150)
[2025-04-13 14:03] LABS: FREE T4 1.32 NG/DL (0.89-1.76)
[2025-04-13 14:04] LABS: VITAMIN B12 LEVEL 330.0 PG/ML (211-911)
== END ==
LOC: M SFHCADAM 10:22
PROVIDERS: ATTEND Family Medicine
DX: E78.2 Mixed hyperlipidemia (principal); D53.1 Other megaloblastic anemias, not elsewhere classified; Z12.5 Encounter for screening for malignant neoplasm of prostate
CPT/HCPCS: 80061; 82607; 82746; 84439; 84443; 85027; G0103